=== PATIENT | female | born 1985 | race Caucasian/White ===

== ENCOUNTER 2016-10-08 20:40 | Emergency (ER) | payer SELFPAY ==
[2016-10-08 20:40] VITALS: BP 110/71
[~2016-10-08 20:40] MED LIST: DIAZ5TAB PO; NAPR500T3 PO
[2016-10-08] MEDS ORDERED: diphenhydrAMINE 50 MG/ML VIAL IVP ONE (21:30)
[2016-10-08] MEDS ORDERED: DEXAMETHASONE SOD PHOS 20 MG/5 ML VIAL. IV ONE (21:30)
[2016-10-08] MEDS ORDERED: PROCHLORPERAZINE 10 MG/2 ML VIAL. IV ONE (21:30)
[2016-10-08] MEDS ORDERED: KETOROLAC 15 MG/ML VIAL. IV ONE (21:30)
--- NOTE | 2016-10-08 21:34 | PHYS DOC ---
Past Medical History Past Medical History: Depression Past Surgical History: Other Additional Past Surgical Histo: D&C, knee, foot Alcohol Use: None Drug Use: None Adult General Chief Complaint Chief Complaint: HEADACHE HPI HPI Patient is a 31 year old female who presents with gradual onset headache over the past 5 days, bifrontal, achy/throbbing, constant, intermittent improvement without resolution with Excedrin. Also notes some right calf pain and swelling, constant, atraumatic for the past few days. Has nausea without emesis. Has tingling sensation intermittently in hands and feet when headache is worst; but none currently. She denies vision changes, photophobia, phonophobia, dizziness , f/c, abdominal pain, back pain, dysuria, diarrhea. No prior migraine diagnosis. Review of Systems Review of Systems Constitutional: Denies fever or chills [] Eyes: Denies change in visual acuity, redness, or eye pain [] HENT: Denies nasal congestion or sore throat [] Respiratory: Denies cough or shortness of breath [] Cardiovascular: No additional information not addressed in HPI [] GI: Denies abdominal pain, nausea, vomiting, bloody stools or diarrhea [] : Denies dysuria or hematuria [] Musculoskeletal: Denies back pain [] Integument: Denies rash or skin lesions [] Neurologic: Denies focal weakness or sensory changes [] Endocrine: Denies polyuria or polydipsia [] Current Medications Current Medications Current Medications Medications (Trade) Dose Ordered Sig/Guilherme Start Time Stop Time Status Last Admin Dose Admin Dexamethasone Sodium Phosphate (Decadron) 10 mg 1X ONCE 10/08/16 21:30 10/08/16 21:31 DC 10/08/16 21:45 10 MG Diphenhydramine HCl (Benadryl) 25 mg 1X ONCE 10/08/16 21:30 10/08/16 21:31 DC 10/08/16 21:46 25 MG Ketorolac Tromethamine (Toradol) 10 mg 1X ONCE 10/08/16 21:30 10/08/16 21:31 DC 10/08/16 21:46 10 MG Prochlorperazine Edisylate (Compazine) 10 mg 1X ONCE 10/08/16 21:30 10/08/16 21:31 DC 10/08/16 21:46 10 MG Allergies Allergies Allergies Coded Allergies Type Severity Reaction Last Updated Verified No Known Drug Allergies 11/27/13 No Physical Exam Physical Exam Constitutional: Well developed, well nourished, no acute distress, non-toxic appearance. [] HENT: Normocephalic, atraumatic, bilateral external ears normal, oropharynx moist, no oral exudates, nose normal. [] Eyes: PERRLA, EOMI, conjunctiva normal, no discharge. [] Neck: Normal range of motion, supple. [] Cardiovascular:Heart rate regular rhythm [] Lungs & Thorax: Bilateral breath sounds clear to auscultation [] Abdomen: Bowel sounds normal, soft, no tenderness. [] Skin: Warm, dry, no erythema, no rash. [] Back: No tenderness, no CVA tenderness. [] Extremities: Has mild tenderness to right medial calf with no visual or palpable abnormality, ROM intact, no edema, no palpable cord. [] Neurologic: Alert and oriented X 3, normal motor function, normal sensory function, no focal deficits noted, cranial nerves 2-12 intact. [] Psychologic: Affect normal, judgement normal, mood normal. [] Current Patient Data Vital Signs Vital Signs Date Time Temp Pulse Resp B/P (MAP) Pulse Ox O2 Delivery O2 Flow Rate FiO2 10/08/16 20:40 98.4 81 18 110/71 (84) 98 Room Air 98.4 Radiology/Procedures Radiology/Procedures Ultrasound right lower extremity venous Doppler IMPRESSION: No evidence of right lower extremity deep vein thrombosis. Electronically signed by: Anuel Recinos MD (10/08/2016 10:12 PM) Course & Med Decision Making Course & Med Decision Making Pertinent Labs and Imaging studies reviewed. (See chart for details) Workup is unremarkable. She is feeling better after medications here and would like to go home. Return precautions given. She understands and agrees with plan. Dragon Disclaimer Dragon Disclaimer This electronic medical record was generated, in whole or in part, using a voice recognition dictation system. Departure Departure Impression: Primary Impression: Headache Additional Impression: Right leg pain Disposition: 01 HOME, SELF-CARE Condition: STABLE Referrals: NO PCP (PCP) Patient Instructions: General Headache Without Cause, [id number] Additional Instructions: Follow-up with your primary care doctor. Return for any concerns. Problem Qualifiers Primary Impression: Headache Headache type: unspecified Headache chronicity pattern: episodic headache Intractability: not intractable Qualified Codes: R51 - Headache Silas NINO MD Oct 08, 2016 21:34
--- NOTE | 2016-10-08 22:15 | RAD ---
Right lower extremity venous Doppler dated 10/08/2016. No comparison available. CLINICAL INDICATION: Pain and swelling for one week. FINDINGS: Grayscale, color-flow and spectral waveform analysis was performed to include the deep venous system of the right lower extremity. Normal compressibility, phasicity and augmentation of flow throughout. No filling defects are seen. IMPRESSION: No evidence of right lower extremity deep vein thrombosis. Electronically signed by: Anuel Recinos MD (10/08/2016 10:12 PM)
== END 2016-10-08 23:06 | disposition home or self-care (01) ==
LOC: ER 20:40
DX: R51 Headache (principal); M79.661 Pain in right lower leg; R11.0 Nausea
CPT/HCPCS: 81025; 93971; 96374; 96375; 99284; J0780; J1100; J1200; J1885

== ENCOUNTER 2016-12-03 19:16 | Emergency (ER) | payer SELFPAY ==
[~2016-12-03] VITALS: Ht 157.5 cm; Wt 65.8 kg
[2016-12-03 20:32] LABS: BASO # 0.1 x10^3/uL (0.0-0.2); BASO % 1 % (0-3); EOS % 4 % (0-3); HEMATOCRIT 41.7 % (36.0-47.0); HEMOGLOBIN 14.3 g/dL (12.0-15.5); LYMPH % 29 % (24-48); MEAN CORPUSCULAR HEMOGLOBIN 30 pg (25-35); MEAN CORPUSCULAR HGB CONC 34 g/dL (31-37); MEAN CORPUSCULAR VOLUME 88 fL (79-100); MONO % 7 % (0-9); NEUT % 59 % (31-73); PLATELET COUNT 228 x10^3/uL (140-400); RED BLOOD COUNT 4.74 x10^6/uL (3.50-5.40); RED CELL DISTRIBUTION WIDTH 12.8 % (11.5-14.5); WHITE BLOOD COUNT 6.9 x10^3/uL (4.0-11.0)
[2016-12-03 20:43] LABS: CALCIUM 9.3 mg/dL (8.5-10.1); CREATININE 0.6 mg/dL (0.6-1.0); GFR 118.2; POTASSIUM 3.3 mmol/L (3.5-5.1)
[2016-12-03 20:50] LABS: ALBUMIN 3.9 g/dL (3.4-5.0); TOTAL BILIRUBIN 0.1 mg/dL (0.2-1.0); TOTAL PROTEIN 7.8 g/dL (6.4-8.2)
[2016-12-03 20:53] LABS: BILIRUBIN,URINE NEGATIVE (NEG); GLUCOSE,URINE NEGATIVE (NEG); NITRITE,URINE NEGATIVE (NEG); PROTEIN,URINE NEGATIVE (NEG-TRACE); UROBILINOGEN,URINE 0.2 mg/dL (0.2 mg/dL)
[2016-12-03 21:02] LABS: BACTERIA,URINE FEW /HPF (0-FEW); RBC,URINE OCC /HPF (0-2); SQUAMOUS EPITHELIAL CELL,UR MOD /LPF; WBC,URINE OCC /HPF (0-4)
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
[2016-12-03 22:00] VITALS: BP 120/60
--- NOTE | 2016-12-04 07:17 | EKG ---
[facility] [address] [place] [address] Test Date: 2016-12-03 Test Time: 19:27:44 Pat Name: BECKIE KRAMER Department: Room: Gender: F Traffic Chief: : 1985 Requested By: DONOVAN MEYER Order Number: [id number] Reading MD: Minna Badillo Measurements Intervals [place] Rate: 95 P: 33 WA: 126 QRS: 43 QRSD: 100 T: 12 QT: 346 QTc: 438 Interpretive Statements SINUS RHYTHM INCOMPLETE RIGHT BUNDLE BRANCH BLOCK OTHERWISE NORMAL ECG Electronically Signed On 12-05-2016 19:40:00 CDT by Minna Badillo
== END 2016-12-03 22:00 | disposition home or self-care (01) ==
LOC: ER 19:16
DX: T75.4XXA Electrocution, initial encounter (principal); W86.8XXA Exposure to other electric current, initial encounter
CPT/HCPCS: 36415; 80053; 81001; 81025; 82550; 85025; 93005; 99285-25

== ENCOUNTER → 2017-02-04 | Outpatient (CLI) | payer BC ==
[~2017-02-04] MED LIST changes: -NAPR500T3 PO; +NAPR500T4 PO
--- NOTE | 2017-02-04 12:07 | RAD ---
APPROVED REPORT Patient Location : OUT-PATIENT Indications VENOUS INSUFFICIENCY Findings JOSE FRANCISCO right great saphenous vein measures 3 mm and the left great saphenous vein measures 5 mm. The rig ht lesser saphenous vein measures 5 mm and the left lesser saphenous vein measures 4 mm. There is no evidence of reflux in the bilateral greater and lesser saphenous veins. Critical Notification Critical Value: No <Conclusion> No evidence of reflux in the bilateral greater and lesser saphenous veins.
== END | disposition home or self-care (01) ==
LOC: US 08:34
PROVIDERS: ATTEND Internal Medicine Cardiovascular Disease
DX: I87.2 Venous insufficiency (chronic) (peripheral) (principal)
CPT/HCPCS: 93970

== ENCOUNTER 2018-05-13 08:23 | Inpatient (IN) | payer SELFPAY ==
[~2018-05-13] VITALS: Ht 154.9 cm; Wt 72.7 kg
[~2018-05-13 08:23] MED LIST changes: +NAPR-514 PO; -NAPR500T4 PO
[2018-05-13] MEDS ORDERED: ACETAMINOPHEN 500 MG TABLET PO ONE ×2 (10:30→13:45)
[2018-05-13] MEDS ORDERED: DEXAMETHASONE SOD PHOS 20 MG/5 ML VIAL. IV ONE (10:30)
[2018-05-13] MEDS ORDERED: IOHEXOL 300 MG/ML 100ML VIAL. IV ONE (10:45)
[2018-05-13] MEDS ORDERED: CONTRAST GIVEN. MC PRN (10:45)
--- NOTE | 2018-05-13 11:41 | PHYS DOC ---
Past Medical History Past Medical History: No Pertinent History, Depression Additional Past Medical Histor: ptsd Past Surgical History: Tubal ligation, Other Additional Past Surgical Histo: D&C, knee, foot Alcohol Use: None Drug Use: None Adult General Chief Complaint Chief Complaint: FLU SYMPTOM HPI HPI Patient is a 32 year old female presents for evaluation of sore throat and fever since yesterday. She denies other symptoms. Review of Systems Review of Systems Constitutional: +FEVER [] Eyes: Denies change in visual acuity, redness, or eye pain [] HENT: Denies nasal congestion , +SORE THROAT[] Respiratory: Denies cough or shortness of breath [] Cardiovascular: No additional information not addressed in HPI [] GI: Denies abdominal pain, nausea, vomiting, bloody stools or diarrhea [] : Denies dysuria or hematuria [] Musculoskeletal: Denies back pain or joint pain [] Integument: Denies rash or skin lesions [] Neurologic: Denies headache, focal weakness or sensory changes [] Endocrine: Denies polyuria or polydipsia [] All other systems were reviewed and found to be within normal limits, except as documented in this note. Current Medications Current Medications Current Medications Medications (Trade) Dose Ordered Sig/Guilherme Start Time Stop Time Status Last Admin Dose Admin Acetaminophen (Tylenol) 1,000 mg 1X ONCE 05/13/18 13:45 05/13/18 13:48 DC Clindamycin Phosphate 50 ml @ 100 mls/hr 1X ONCE 05/13/18 13:45 05/13/18 14:14 DC 05/13/18 13:54 100 MLS/HR Dexamethasone Sodium Phosphate (Decadron) 10 mg 1X ONCE 05/13/18 10:30 05/13/18 10:31 DC 05/13/18 13:17 10 MG Ibuprofen (Motrin) 800 mg 1X ONCE 05/13/18 14:00 05/13/18 14:02 DC 05/13/18 14:18 800 MG Info (CONTRAST GIVEN -- Rx MONITORING) 1 each PRN DAILY PRN 05/13/18 10:45 05/15/18 10:44 Iohexol (Omnipaque 300 Mg/ml) 70 ml 1X ONCE 05/13/18 10:45 05/13/18 10:46 DC 05/13/18 10:45 70 ML Lidocaine HCl (Xylocaine-Mpf 2% Vial) 2 ml STK-MED ONCE 05/13/18 15:38 05/13/18 15:40 DC Morphine Sulfate (Morphine Sulfate) 2 mg PRN Q2HR PRN 05/13/18 16:30 05/14/18 16:29 Ondansetron HCl (Zofran) 4 mg PRN Q8HRS PRN 05/13/18 16:30 05/14/18 16:29 Potassium Chloride (KCl Oral Soln) 40 meq 1X ONCE 05/13/18 14:00 05/13/18 14:02 DC 05/13/18 14:20 40 MEQ Potassium Chloride (Klor-Con) 40 meq 1X ONCE 05/13/18 16:30 05/13/18 16:31 UNV Sodium Chloride 1,000 ml @ 1,000 mls/hr 1X ONCE 05/13/18 13:45 05/13/18 14:44 DC 05/13/18 14:39 1,000 MLS/HR Allergies Allergies Allergies Coded Allergies Type Severity Reaction Last Updated Verified No Known Drug Allergies 11/27/13 No Physical Exam Physical Exam Constitutional: Well developed, well nourished, no acute distress, ILL APPEARING. [] HENT: Normocephalic, atraumatic, , oropharynx moist, EDEMATOUS, ERYTHEMATOUS POSTERIOR ORAL PHARYNX, EDEMA TO TONSILS. [] Eyes: PERRLA, EOMI, conjunctiva normal, no discharge. [] Neck: Normal range of motion, no tenderness, supple, no stridor, + ANTERIOR BILAT CERV LYMPHADENOPATHY. [] Cardiovascular:Heart rate regular rhythm, no murmur [] Lungs & Thorax: Bilateral breath sounds clear to auscultation [] Skin: Warm, dry, no erythema, no rash. [] Neurologic: Alert and oriented X 3, normal motor function, normal sensory function, no focal deficits noted. [] Psychologic: Affect normal, judgement normal, mood normal. [] Current Patient Data Vital Signs Vital Signs Date Time Temp Pulse Resp B/P (MAP) Pulse Ox O2 Delivery O2 Flow Rate FiO2 05/13/18 16:25 98.0 98.0 05/13/18 12:20 20 05/13/18 10:30 97 134/72 (92) 98 Room Air Lab Values Laboratory Tests Test 1/26/19 12:55 White Blood Count 21.9 x10^3/uL (4.0-11.0) H Red Blood Count 4.75 x10^6/uL (3.50-5.40) Hemoglobin 13.3 g/dL (12.0-15.5) Hematocrit 39.8 % (36.0-47.0) Mean Corpuscular Volume 84 fL (79-100) Mean Corpuscular Hemoglobin 28 pg (25-35) Mean Corpuscular Hemoglobin Concent 33 g/dL (31-37) Red Cell Distribution Width 12.5 % (11.5-14.5) Platelet Count 197 x10^3/uL (140-400) Neutrophils (%) (Auto) 86 % (31-73) H Lymphocytes (%) (Auto) 5 % (24-48) L Monocytes (%) (Auto) 9 % (0-9) Eosinophils (%) (Auto) 0 % (0-3) Basophils (%) (Auto) 0 % (0-3) Neutrophils # (Auto) 18.9 x10^3uL (1.8-7.7) H Lymphocytes # (Auto) 1.1 x10^3/uL (1.0-4.8) Monocytes # (Auto) 1.9 x10^3/uL (0.0-1.1) H Eosinophils # (Auto) 0.0 x10^3/uL (0.0-0.7) Basophils # (Auto) 0.0 x10^3/uL (0.0-0.2) Segmented Neutrophils % 84 % (35-66) H Band Neutrophils % 2 % (0-9) Lymphocytes % 11 % (24-48) L Monocytes % 3 % (0-10) Toxic Granulation Slight Platelet Estimate Adequate (ADEQUATE) Sodium Level 134 mmol/L (136-145) L Potassium Level 2.8 mmol/L (3.5-5.1) *L Chloride Level 97 mmol/L (98-107) L Carbon Dioxide Level 24 mmol/L (21-32) Anion Gap 13 (6-14) Blood Urea Nitrogen 6 mg/dL (7-20) L Creatinine 0.7 mg/dL (0.6-1.0) Estimated GFR (Cockcroft-Gault) 98.3 BUN/Creatinine Ratio 9 (6-20) Glucose Level 102 mg/dL (70-99) H Lactic Acid Level 0.6 mmol/L (0.4-2.0) Calcium Level 9.2 mg/dL (8.5-10.1) Total Bilirubin 0.4 mg/dL (0.2-1.0) Aspartate Amino Transferase (AST) 16 U/L (15-37) Alanine Aminotransferase (ALT) 13 U/L (14-59) L Alkaline Phosphatase 113 U/L (46-116) Total Protein 8.5 g/dL (6.4-8.2) H Albumin 3.5 g/dL (3.4-5.0) Albumin/Globulin Ratio 0.7 (1.0-1.7) L Heterophil Agglutinins Negative (NEGATIVE) Laboratory Tests 05/13/18 12:55 Laboratory Tests 05/13/18 12:55 EKG EKG [] Radiology/Procedures Radiology/Procedures []REASON: CONCERN FOR CHORE TENDER PROCEDURE: CT SOFT TISSUE NECK W/CONTRAST CT SOFT TISSUE NECK W/CONTRAST dated 05/13/2018 3:40 PM Indication: Sore throat, painSORE THROAT X2DAYS
OMNI 300 70ML, NO PRIORS. Comparison: No comparison is available. Technique: Contiguous axial imaging of the neck performed following the intravenous administration of 70 cc Omnipaque 300. One or more of the following individualized dose reduction techniques were utilized for this examination: 1. Automated exposure control 2. Adjustment of the mA and/or kV according to patient size 3. Use of iterative reconstruction technique Findings: Lingual and palatine tonsils are enlarged and there is some edema in the deep parapharyngeal fat. No well-circumscribed fluid collection to suggest abscess. No soft tissue gas. There is also mild prominence of the adenoids. The central airway is patent. Mildly enlarged bilateral submandibular and jugulodigastric lymph nodes. The largest jugulodigastric lymph node is located on the right, measuring about 3.2 cm long axis. Smaller lymph nodes on the left. The neck vasculature is grossly patent. Thyroid gland unremarkable. No additional soft tissue abnormality. Limited imaged portions the brain parenchyma unremarkable. Visualized paranasal sinuses and mastoid air cells are clear. No apparent bony abnormality. Limited images of the lung apices are clear. IMPRESSION: 1. Parapharyngeal soft tissue thickening and enhancement, consistent with history of acute pharyngitis. There is no evidence of abscess or soft tissue gas. 2. Bilateral cervical chain lymphadenopathy, right greater than left. This is nonspecific but likely reactive. Follow-up imaging to ensure resolution. Electronically signed by: Anuel Recinos MD (05/13/2018 4:02 PM) [facility] [place] DICTATED and SIGNED BY: ANUEL RECINOS MD DATE: 05/13/18 1554 Course & Med Decision Making Course & Med Decision Making Pertinent Labs and Imaging studies reviewed. (See chart for details) []Patient meets sepsis criteria as she has been given IV fluids and IV antibiotics, CT neck indicates acute pharyngitis with no abscess, patient is admitted to Dr. Maravilla. Dragon Disclaimer Radhames Disclaimer This electronic medical record was generated, in whole or in part, using a voice recognition dictation system. Departure Departure Impression: Primary Impression: Pharyngitis Additional Impressions: Sepsis Hypokalemia Disposition: ADMITTED INPATIENT Admitting Physician: Dianne Maravilla Condition: STABLE Referrals: NO PCP (PCP) Problem Qualifiers PEGGY ACOSTA EMERGENCY DEPARTMENT MANAGER May 13, 2018 11:41
[2018-05-13] MEDS ORDERED: IV NORMAL SALINE 1000ML BAG 1,000 ML IV ONE ×2 (11:45→13:45)
[2018-05-13 13:16] LABS: BASO % 0 % (0-3); EOS % 0 % (0-3); HEMATOCRIT 39.8 % (36.0-47.0); HEMOGLOBIN 13.3 g/dL (12.0-15.5); LYMPH # 1.1 x10^3/uL (1.0-4.8); LYMPH % 5 % (24-48); MEAN CORPUSCULAR HEMOGLOBIN 28 pg (25-35); MEAN CORPUSCULAR HGB CONC 33 g/dL (31-37); MEAN CORPUSCULAR VOLUME 84 fL (79-100); MONO # 1.9 x10^3/uL (0.0-1.1); MONO % 9 % (0-9); NEUT # 18.9 x10^3uL (1.8-7.7); NEUT % 86 % (31-73); PLATELET COUNT 197 x10^3/uL (140-400); RED BLOOD COUNT 4.75 x10^6/uL (3.50-5.40); RED CELL DISTRIBUTION WIDTH 12.5 % (11.5-14.5); WHITE BLOOD COUNT 21.9 x10^3/uL (4.0-11.0)
[2018-05-13 13:33] LABS: ALBUMIN 3.5 g/dL (3.4-5.0); ALBUMIN/GLOBULIN RATIO 0.7 (1.0-1.7); CALCIUM 9.2 mg/dL (8.5-10.1); CREATININE 0.7 mg/dL (0.6-1.0); GFR 98.3; TOTAL BILIRUBIN 0.4 mg/dL (0.2-1.0); TOTAL PROTEIN 8.5 g/dL (6.4-8.2)
[2018-05-13 13:40] LABS: MONONUCLEOSIS PATIENT NEGATIVE (NEGATIVE)
[2018-05-13 13:41] LABS: POTASSIUM 2.8 mmol/L (3.5-5.1)
[2018-05-13] MEDS ORDERED: CLINDAMYCIN 600MG PREMIX 50 ML IV ONE (13:45)
[2018-05-13] MEDS ORDERED: IBUPROFEN 400 MG TABLET. PO ONE (14:00)
[2018-05-13] MEDS ORDERED: POTASSIUM CHLORIDE 20 MEQ/15 ML ORAL LIQUID. PO ONE (14:00)
[2018-05-13 15:07] LABS: % BANDS 2 % (0-9); % LYMPHS 11 % (24-48); % MONOS 3 % (0-10); % SEGS 84 % (35-66)
[2018-05-13 15:10] LABS: PLT ESTIMATE ADEQUATE (ADEQUATE); TOXIC GRANULATION SLIGHT
[2018-05-13] MEDS ORDERED: LIDOCAINE 2% PF 2ML VIAL. ONE (15:38)
--- NOTE | 2018-05-13 16:06 | RAD ---
CT SOFT TISSUE NECK W/CONTRAST dated 05/13/2018 3:40 PM Indication: Sore throat, painSORE THROAT X2DAYS
OMNI 300 70ML, NO PRIORS. Comparison: No comparison is available. Technique: Contiguous axial imaging of the neck performed following the intravenous administration of 70 cc Omnipaque 300. One or more of the following individualized dose reduction techniques were utilized for this examination: 1. Automated exposure control 2. Adjustment of the mA and/or kV according to patient size 3. Use of iterative reconstruction technique Findings: Lingual and palatine tonsils are enlarged and there is some edema in the deep parapharyngeal fat. No well-circumscribed fluid collection to suggest abscess. No soft tissue gas. There is also mild prominence of the adenoids. The central airway is patent. Mildly enlarged bilateral submandibular and jugulodigastric lymph nodes. The largest jugulodigastric lymph node is located on the right, measuring about 3.2 cm long axis. Smaller lymph nodes on the left. The neck vasculature is grossly patent. Thyroid gland unremarkable. No additional soft tissue abnormality. Limited imaged portions the brain parenchyma unremarkable. Visualized paranasal sinuses and mastoid air cells are clear. No apparent bony abnormality. Limited images of the lung apices are clear. IMPRESSION: 1. Parapharyngeal soft tissue thickening and enhancement, consistent with history of acute pharyngitis. There is no evidence of abscess or soft tissue gas. 2. Bilateral cervical chain lymphadenopathy, right greater than left. This is nonspecific but likely reactive. Follow-up imaging to ensure resolution. Electronically signed by: Anuel Recinos MD (05/13/2018 4:02 PM) [facility] [place]
[2018-05-13] MEDS ORDERED: guaiFENesin DM 200MG/20MG 10 ML SYRUP PO PRN (16:30)
[2018-05-13] MEDS ORDERED: MORPHINE SULFATE 4 MG/ML VIAL. IV PRN (16:30)
[2018-05-13] MEDS ORDERED: ONDANSETRON PF 4 MG/2 ML VIAL. IV PRN ×2 (16:30)
[2018-05-13] MEDS ORDERED: IBUPROFEN 400 MG TABLET. PO PRN (16:30)
[2018-05-13] MEDS ORDERED: ACETAMINOPHEN 500 MG TABLET PO PRN (16:30)
[2018-05-13] MEDS ORDERED: NICOTINE 21MG PATCH. TD PRN (16:30)
[2018-05-13] MEDS ORDERED: POTASSIUM CHLORIDE 20 MEQ TABLET.ER. PO ONE ×2 (16:45→17:00)
--- NOTE | 2018-05-13 16:52 | PDOC1 ---
History and Physical Date of Admission Date of Admission DATE: 05/13/18 TIME: 16:45 Identification/Chief Complaint Chief Complaint Sore throat Source Source: Caregiver, Chart review, Patient History of Present Illness History of Present Illness 32-year-old female with no significant past medical history sore throat for 2 days. Does not work in daycare or health care facilities. Denies recent sick contact or working with sick kids. Significant soft tissue on clinical exam and CT soft tissue neck. But tonsils are not enlarged and there is no abscess appreciated. She is minimally able to open her mouth for me to examine the posterior pharyngeal wall but there are palpable lymph nodes and is tender to touch on cervical neck chain exam. WBC elevated at 21 with predominance of neutrophils. Febrile in the ER and at home. Critical hypokalemia 2.8 from poor by mouth intake because of odynodysphagia. Sodium mildly low 134. No allergies to penicillin & got clindamycin at ER. group B strep pending Also, complains of myalgias. We'll test for flu Admitted for IV antibiotics. I do GI soft and advance diet as tolerated. Got Decadron- I agree I will continue 4 mgs IV every 6. Check for flu. Seen at ER Past Medical History Cardiovascular: No pertinent hx Pulmonary: No pertinent hx GI: No pertinent hx Heme/Onc: No pertinent hx Hepatobiliary: No pertinent hx Psych: No pertinent hx Rheumatologic: No pertinent hx Infectious disease: No pertinent hx ENT: No pertinent hx Renal/: No pertinent hx Endocrine: No pertinent hx Dermatology: No pertinent hx Past Surgical History Past Surgical History: No pertinent history Family History Family History: No Significant Social History Smoke: No ALCOHOL: none Drugs: None Current Problem List Problem List Problems Medical Problems: (1) Hypokalemia Status: Acute (2) Pharyngitis Status: Acute Current Medications Current Medications Current Medications Dexamethasone Sodium Phosphate (Decadron) 10 mg 1X ONCE IV Last administered on 05/13/18at 13:17; Start 05/13/18 at 10:30; Stop 05/13/18 at 10:31; Status DC Acetaminophen (Tylenol) 1,000 mg 1X ONCE PO Last administered on 05/13/18at 12: 25; Start 05/13/18 at 10:30; Stop 05/13/18 at 10:31; Status DC Iohexol (Omnipaque 300 Mg/ml) 70 ml 1X ONCE IV Last administered on 05/13/18at 10:45; Start 05/13/18 at 10:45; Stop 05/13/18 at 10:46; Status DC Info (CONTRAST GIVEN -- Rx MONITORING) 1 each PRN DAILY PRN MC SEE COMMENTS; Start 05/13/18 at 10:45; Stop 05/15/18 at 10:44 Sodium Chloride 1,000 ml @ 1,000 mls/hr 1X ONCE IV Last administered on at 13:17; Start 05/13/18 at 11:45; Stop 05/13/18 at 12:44; Status DC Clindamycin Phosphate 50 ml @ 100 mls/hr 1X ONCE IV Last administered on 05/13at 13:54; Start 05/13/18 at 13:45; Stop 05/13/18 at 14:14; Status DC Sodium Chloride 1,000 ml @ 1,000 mls/hr 1X ONCE IV Last administered on at 14:39; Start 05/13/18 at 13:45; Stop 05/13/18 at 14:44; Status DC Acetaminophen (Tylenol) 1,000 mg 1X ONCE PO ; Start 05/13/18 at 13:45; Stop at 13:48; Status DC Ibuprofen (Motrin) 800 mg 1X ONCE PO Last administered on 05/13/18at 14:18; Start 05/13/18 at 14:00; Stop 05/13/18 at 14:02; Status DC Potassium Chloride (KCl Oral Soln) 40 meq 1X ONCE PO Last administered on 05/13at 14:20; Start 05/13/18 at 14:00; Stop 05/13/18 at 16:37; Status DC Lidocaine HCl (Xylocaine-Mpf 2% Vial) 2 ml STK-MED ONCE .ROUTE ; Start 05/13/18 at 15:38; Stop 05/13/18 at 15:40; Status DC Ondansetron HCl (Zofran) 4 mg PRN Q8HRS PRN IV NAUSEA/VOMITING; Start 05/13/18 at 16:30; Stop 05/13/18 at 16:30; Status DC Morphine Sulfate (Morphine Sulfate) 2 mg PRN Q2HR PRN IV PAIN; Start 05/13/18 at 16:30; Stop 05/14/18 at 16:29 Potassium Chloride (Klor-Con) 40 meq 1X ONCE PO ; Start 05/13/18 at 17:00; Stop 05/13/18 at 17:00; Status DC Ondansetron HCl (Zofran) 4 mg PRN Q6HRS PRN IV NAUSEA/VOMITING; Start 05/13/18 at 16:30 Pseudoephedrine HCl (Sudafed 12-Hour) 120 mg BID PO ; Start 05/13/18 at 21:00 Guaifenesin (Robitussin Dm) 10 ml PRN Q6HRS PRN PO COUGH; Start 05/13/18 at 16: 30 Ampicillin Sodium/ Sulbactam Sodium 1.5 gm/Sodium Chloride 50 ml @ 100 mls/hr Q6HRS IV ; Start 05/13/18 at 17:00 Potassium Chloride/Dextrose/ Sod Cl 1,000 ml @ 100 mls/hr Q10H IV ; Start 05/13 at 16:30 Fluticasone Propionate (Flonase) 2 spray DAILY NS ; Start 05/14/18 at 09:00 Diphenhydramine HCl (Benadryl) 25 mg PRN QHS PRN PO INSOMNIA; Start 05/13/18 at 16:30 Nicotine (Nicoderm Cq 21mg) 1 patch PRN DAILY PRN TD SMOKING CESSATION; Start 05/13/18 at 16:30 Acetaminophen (Tylenol) 500 mg PRN Q6HRS PRN PO MILD PAIN / TEMP; Start at 16:30 Acetaminophen/ Codeine Phosphate (Tylenol #3) 1 tab PRN Q6HRS PRN PO MODERATE - SEVERE PAIN; Start 05/13/18 at 16:30 Ibuprofen (Motrin) 400 mg PRN Q6HRS PRN PO INFLAMMATION; Start 05/13/18 at 16: 30 Potassium Chloride (Klor-Con) 40 meq 1X ONCE PO ; Start 05/13/18 at 16:45; Stop 05/13/18 at 16:45; Status DC Active Scripts Active Naproxen 500 Mg Tablet 1 Tab PO BID Valium (Diazepam) 5 Mg Tablet 5 Mg PO BID Allergies Allergies: Coded Allergies: No Known Drug Allergies (Unverified , 11/27/13) ROS Review of System As per history of present illness, the rest of ROS 14 point negative Physical Exam General: Alert, No acute distress HEENT: Atraumatic, PERRLA, EOMI, Other (hyperemic. Posterior pharyngeal wall, no tonsils or abscesses appreciatedCervical neck chain nodes tender to touch) Lungs: Clear to auscultation, Normal air movement Heart: S1S2, RRR, no thrills, no rubs, no gallops, no murmurs Cardiovascular: S1, S2 Abdomen: Normal bowel sounds, Soft, No tenderness, No hepatosplenomegaly, No masses Rectal Exam: not examined PELVIC: Nml ext genitalia Extremities: No clubbing, No cyanosis, No edema, Normal pulses, No tenderness/ swelling Skin: No rashes, No breakdown, No significant lesion Neuro: Normal gait, Normal speech, Strength at 5/5 X4 ext, Normal tone, Sensation intact, Cranial nerves 3-12 NL, Reflexes 2+ Psych/Mental Status: Mental status NL, Mood NL Vitals Vitals Vital Signs Date Time Temp Pulse Resp B/P (MAP) Pulse Ox O2 Delivery O2 Flow Rate FiO2 05/13/18 16:25 98.0 98.0 05/13/18 12:20 20 05/13/18 10:30 97 134/72 (92) 98 Room Air Labs Labs Laboratory Tests Test 05/13/18 12:55 White Blood Count 21.9 x10^3/uL (4.0-11.0) Red Blood Count 4.75 x10^6/uL (3.50-5.40) Hemoglobin 13.3 g/dL (12.0-15.5) Hematocrit 39.8 % (36.0-47.0) Mean Corpuscular Volume 84 fL (79-100) Mean Corpuscular Hemoglobin 28 pg (25-35) Mean Corpuscular Hemoglobin Concent 33 g/dL (31-37) Red Cell Distribution Width 12.5 % (11.5-14.5) Platelet Count 197 x10^3/uL (140-400) Neutrophils (%) (Auto) 86 % (31-73) Lymphocytes (%) (Auto) 5 % (24-48) Monocytes (%) (Auto) 9 % (0-9) Eosinophils (%) (Auto) 0 % (0-3) Basophils (%) (Auto) 0 % (0-3) Neutrophils # (Auto) 18.9 x10^3uL (1.8-7.7) Lymphocytes # (Auto) 1.1 x10^3/uL (1.0-4.8) Monocytes # (Auto) 1.9 x10^3/uL (0.0-1.1) Eosinophils # (Auto) 0.0 x10^3/uL (0.0-0.7) Basophils # (Auto) 0.0 x10^3/uL (0.0-0.2) Segmented Neutrophils % 84 % (35-66) Band Neutrophils % 2 % (0-9) Lymphocytes % 11 % (24-48) Monocytes % 3 % (0-10) Toxic Granulation Slight Platelet Estimate Adequate (ADEQUATE) Sodium Level 134 mmol/L (136-145) Potassium Level 2.8 mmol/L (3.5-5.1) Chloride Level 97 mmol/L (98-107) Carbon Dioxide Level 24 mmol/L (21-32) Anion Gap 13 (6-14) Blood Urea Nitrogen 6 mg/dL (7-20) Creatinine 0.7 mg/dL (0.6-1.0) Estimated GFR (Cockcroft-Gault) 98.3 BUN/Creatinine Ratio 9 (6-20) Glucose Level 102 mg/dL (70-99) Lactic Acid Level 0.6 mmol/L (0.4-2.0) Calcium Level 9.2 mg/dL (8.5-10.1) Total Bilirubin 0.4 mg/dL (0.2-1.0) Aspartate Amino Transf (AST/SGOT) 16 U/L (15-37) Alanine Aminotransferase (ALT/SGPT) 13 U/L (14-59) Alkaline Phosphatase 113 U/L (46-116) Total Protein 8.5 g/dL (6.4-8.2) Albumin 3.5 g/dL (3.4-5.0) Albumin/Globulin Ratio 0.7 (1.0-1.7) Heterophil Agglutinins Negative (NEGATIVE) Laboratory Tests Test 05/13/18 12:55 White Blood Count 21.9 x10^3/uL (4.0-11.0) Red Blood Count 4.75 x10^6/uL (3.50-5.40) Hemoglobin 13.3 g/dL (12.0-15.5) Hematocrit 39.8 % (36.0-47.0) Mean Corpuscular Volume 84 fL (79-100) Mean Corpuscular Hemoglobin 28 pg (25-35) Mean Corpuscular Hemoglobin Concent 33 g/dL (31-37) Red Cell Distribution Width 12.5 % (11.5-14.5) Platelet Count 197 x10^3/uL (140-400) Neutrophils (%) (Auto) 86 % (31-73) Lymphocytes (%) (Auto) 5 % (24-48) Monocytes (%) (Auto) 9 % (0-9) Eosinophils (%) (Auto) 0 % (0-3) Basophils (%) (Auto) 0 % (0-3) Neutrophils # (Auto) 18.9 x10^3uL (1.8-7.7) Lymphocytes # (Auto) 1.1 x10^3/uL (1.0-4.8) Monocytes # (Auto) 1.9 x10^3/uL (0.0-1.1) Eosinophils # (Auto) 0.0 x10^3/uL (0.0-0.7) Basophils # (Auto) 0.0 x10^3/uL (0.0-0.2) Segmented Neutrophils % 84 % (35-66) Band Neutrophils % 2 % (0-9) Lymphocytes % 11 % (24-48) Monocytes % 3 % (0-10) Toxic Granulation Slight Platelet Estimate Adequate (ADEQUATE) Sodium Level 134 mmol/L (136-145) Potassium Level 2.8 mmol/L (3.5-5.1) Chloride Level 97 mmol/L (98-107) Carbon Dioxide Level 24 mmol/L (21-32) Anion Gap 13 (6-14) Blood Urea Nitrogen 6 mg/dL (7-20) Creatinine 0.7 mg/dL (0.6-1.0) Estimated GFR (Cockcroft-Gault) 98.3 BUN/Creatinine Ratio 9 (6-20) Glucose Level 102 mg/dL (70-99) Lactic Acid Level 0.6 mmol/L (0.4-2.0) Calcium Level 9.2 mg/dL (8.5-10.1) Total Bilirubin 0.4 mg/dL (0.2-1.0) Aspartate Amino Transf (AST/SGOT) 16 U/L (15-37) Alanine Aminotransferase (ALT/SGPT) 13 U/L (14-59) Alkaline Phosphatase 113 U/L (46-116) Total Protein 8.5 g/dL (6.4-8.2) Albumin 3.5 g/dL (3.4-5.0) Albumin/Globulin Ratio 0.7 (1.0-1.7) Heterophil Agglutinins Negative (NEGATIVE) VTE Prophylaxis Ordered VTE Prophylaxis Devices: Yes VTE Pharmacological Prophylaxi: Yes Assessment/Plan Assessment/Plan Severe acute tonsillopharyngitis rule out group B strep throat- 2 days onset Myalgias Rule out influenza Overweight BMI 30 Sepsis with fevers and leukocytosis Critical hypokalemia Odynophagia secondary to #1 Mild hyponatremia 134 PLAN: Admit 2 MN, K IVF then re check K tmr GI soft then ADAT PCN best tx COuld be viral too IV decadron for now sec to signif swelling Other supportive meds, sudafed, H1 antag etc NO home meds to reconcile Seen at ER Droplet prec Check for flu- tamiflu if positive DILIP HAGEN MD May 13, 2018 16:52
[2018-05-13] MEDS: DEXAMETHASONE SOD PHOS 4 MG/ML VIAL IV SCH ×2 (18:18→23:58)
[2018-05-13] MEDS: AMPICILLIN/SULBACTAM 1.5 GM in IV NORMAL SALINE 50ML 50 ML IV SCH ×2 (18:18→23:57)
[2018-05-13] MEDS: POTASSIUM CL 30MEQ D5-0.45NACL 1,000 ML IV SCH (18:21)
[2018-05-13 19:47] VITALS: BP 95/59
[2018-05-13] MEDS: diphenhydrAMINE HCL 25 MG CAPSULE PO PRN (21:55)
[2018-05-13 23:44] VITALS: BP 96/60
[2018-05-13] MEDS: PSEUDOEPHEDRINE ER 120 MG TABLET.ER. PO SCH (23:58)
[2018-05-14] MEDS: POTASSIUM CL 30MEQ D5-0.45NACL 1,000 ML IV SCH ×2 (02:30→12:30)
[2018-05-14 04:00] VITALS: BP 99/57
[2018-05-14] MEDS: AMPICILLIN/SULBACTAM 1.5 GM in IV NORMAL SALINE 50ML 50 ML IV SCH ×3 (06:38→18:06)
[2018-05-14] MEDS: DEXAMETHASONE SOD PHOS 4 MG/ML VIAL IV SCH ×3 (06:39→18:06)
[2018-05-14 07:13] LABS: CALCIUM 9.3 mg/dL (8.5-10.1); CREATININE 0.5 mg/dL (0.6-1.0); GFR 144.9
[2018-05-14 07:18] LABS: POTASSIUM 3.8 mmol/L (3.5-5.1)
[2018-05-14] MEDS: ACETAMINOPHEN/CODEINE 300/30MG TABLET. PO PRN ×2 (07:20→17:06)
[2018-05-14 07:55] VITALS: BP 99/63
[2018-05-14] MEDS ORDERED: ARIP15TA3 PO (07:57)
[2018-05-14] MEDS ORDERED: PRAZ2CAP PO (07:58)
[2018-05-14] MEDS ORDERED: TRAZ-86 PO (07:58)
[2018-05-14] MEDS: PSEUDOEPHEDRINE ER 120 MG TABLET.ER. PO SCH ×2 (09:35→20:53)
[2018-05-14] MEDS: FLUTICASONE 50MCG/NASAL SPRAY 16GM BOTTLE. NS SCH (09:36)
--- NOTE | 2018-05-14 11:24 | PDOC ---
PROGRESS NOTES Chief Complaint Chief Complaint acute tonsillopharyngitis -negative strep throat Negative influenza Overweight BMI 30 Sepsis with fevers and leukocytosis Critical hypokalemia, resolved Odynophagia secondary to #1 - better Mild hyponatremia 134, corrected History of Present Illness History of Present Illness She feels way better Swelling is significantly subsided-she is ready for regular diet CBC pending-WBC 21 No fevers Plan: Upgrade to regular diet Awaiting repeat CBC May add ESR Will need Augmentin on discharge target tomorrow She wishes to renew her anxiety pill, hydroxyzine? Vitals Vitals Vital Signs Date Time Temp Pulse Resp B/P (MAP) Pulse Ox O2 Delivery O2 Flow Rate FiO2 05/14/18 08:20 17 Room Air 05/14/18 07:55 97.5 71 99/63 (75) 98 97.5 Physical Exam General: Alert, Oriented X3, Cooperative, No acute distress Heart: Regular rate, Normal S1, Normal S2 Lungs: Clear Abdomen: Normal bowel sounds, Soft, No tenderness, No hepatosplenomegaly, No masses Extremities: No clubbing, No cyanosis, No edema, Normal pulses, No tenderness/ swelling Skin: No rashes, No breakdown, No significant lesion Labs LABS Laboratory Tests Test 05/13/18 12:55 05/14/18 06:20 White Blood Count 21.9 x10^3/uL (4.0-11.0) Red Blood Count 4.75 x10^6/uL (3.50-5.40) Hemoglobin 13.3 g/dL (12.0-15.5) Hematocrit 39.8 % (36.0-47.0) Mean Corpuscular Volume 84 fL (79-100) Mean Corpuscular Hemoglobin 28 pg (25-35) Mean Corpuscular Hemoglobin Concent 33 g/dL (31-37) Red Cell Distribution Width 12.5 % (11.5-14.5) Platelet Count 197 x10^3/uL (140-400) Neutrophils (%) (Auto) 86 % (31-73) Lymphocytes (%) (Auto) 5 % (24-48) Monocytes (%) (Auto) 9 % (0-9) Eosinophils (%) (Auto) 0 % (0-3) Basophils (%) (Auto) 0 % (0-3) Neutrophils # (Auto) 18.9 x10^3uL (1.8-7.7) Lymphocytes # (Auto) 1.1 x10^3/uL (1.0-4.8) Monocytes # (Auto) 1.9 x10^3/uL (0.0-1.1) Eosinophils # (Auto) 0.0 x10^3/uL (0.0-0.7) Basophils # (Auto) 0.0 x10^3/uL (0.0-0.2) Segmented Neutrophils % 84 % (35-66) Band Neutrophils % 2 % (0-9) Lymphocytes % 11 % (24-48) Monocytes % 3 % (0-10) Toxic Granulation Slight Platelet Estimate Adequate (ADEQUATE) Sodium Level 134 mmol/L (136-145) 142 mmol/L (136-145) Potassium Level 2.8 mmol/L (3.5-5.1) 3.8 mmol/L (3.5-5.1) Chloride Level 97 mmol/L (98-107) 107 mmol/L (98-107) Carbon Dioxide Level 24 mmol/L (21-32) 20 mmol/L (21-32) Anion Gap 13 (6-14) 15 (6-14) Blood Urea Nitrogen 6 mg/dL (7-20) 8 mg/dL (7-20) Creatinine 0.7 mg/dL (0.6-1.0) 0.5 mg/dL (0.6-1.0) Estimated GFR (Cockcroft-Gault) 98.3 144.9 BUN/Creatinine Ratio 9 (6-20) Glucose Level 102 mg/dL (70-99) 124 mg/dL (70-99) Lactic Acid Level 0.6 mmol/L (0.4-2.0) Calcium Level 9.2 mg/dL (8.5-10.1) 9.3 mg/dL (8.5-10.1) Total Bilirubin 0.4 mg/dL (0.2-1.0) Aspartate Amino Transf (AST/SGOT) 16 U/L (15-37) Alanine Aminotransferase (ALT/SGPT) 13 U/L (14-59) Alkaline Phosphatase 113 U/L (46-116) Total Protein 8.5 g/dL (6.4-8.2) Albumin 3.5 g/dL (3.4-5.0) Albumin/Globulin Ratio 0.7 (1.0-1.7) Heterophil Agglutinins Negative (NEGATIVE) Review of Systems Review of Systems A 14 point ROS was completed with the following noted as positive: Other systems reviewed and negative. \CONSTITUTIONAL: No fever or chills EYES: No recent changes SKIN: No rash or itching CARDIOVASCULAR: No chest pain, syncope, palpitations, or edema RESPIRATORY: No SOB or cough GASTROINTESTINAL: No nausea, vomiting or abdominal pain NEUROLOGICAL: No headaches or weakness ENDOCRINE: No cold or heat intolerance GENITOURINARY: No urgency or frequency of urination MUSCULOSKELETAL: No back pain or joint pain LYMPHATICS: No enlarged lymph nodes PSYCHIATRIC: No anxiety or depression Assessment and Plan Assessmemt and Plan Problems Medical Problems: (1) Hypokalemia Status: Acute (2) Pharyngitis Status: Acute Comment Review of Relevant I have reviewed the following items neal (where applicable) has been applied. Labs Laboratory Tests Test 05/13/18 10:15 05/13/18 12:55 05/14/18 06:20 Group A Streptococcus Rapid Negative (NEGATIVE) White Blood Count 21.9 x10^3/uL (4.0-11.0) Red Blood Count 4.75 x10^6/uL (3.50-5.40) Hemoglobin 13.3 g/dL (12.0-15.5) Hematocrit 39.8 % (36.0-47.0) Mean Corpuscular Volume 84 fL (79-100) Mean Corpuscular Hemoglobin 28 pg (25-35) Mean Corpuscular Hemoglobin Concent 33 g/dL (31-37) Red Cell Distribution Width 12.5 % (11.5-14.5) Platelet Count 197 x10^3/uL (140-400) Neutrophils (%) (Auto) 86 % (31-73) Lymphocytes (%) (Auto) 5 % (24-48) Monocytes (%) (Auto) 9 % (0-9) Eosinophils (%) (Auto) 0 % (0-3) Basophils (%) (Auto) 0 % (0-3) Neutrophils # (Auto) 18.9 x10^3uL (1.8-7.7) Lymphocytes # (Auto) 1.1 x10^3/uL (1.0-4.8) Monocytes # (Auto) 1.9 x10^3/uL (0.0-1.1) Eosinophils # (Auto) 0.0 x10^3/uL (0.0-0.7) Basophils # (Auto) 0.0 x10^3/uL (0.0-0.2) Segmented Neutrophils % 84 % (35-66) Band Neutrophils % 2 % (0-9) Lymphocytes % 11 % (24-48) Monocytes % 3 % (0-10) Toxic Granulation Slight Platelet Estimate Adequate (ADEQUATE) Sodium Level 134 mmol/L (136-145) 142 mmol/L (136-145) Potassium Level 2.8 mmol/L (3.5-5.1) 3.8 mmol/L (3.5-5.1) Chloride Level 97 mmol/L (98-107) 107 mmol/L (98-107) Carbon Dioxide Level 24 mmol/L (21-32) 20 mmol/L (21-32) Anion Gap 13 (6-14) 15 (6-14) Blood Urea Nitrogen 6 mg/dL (7-20) 8 mg/dL (7-20) Creatinine 0.7 mg/dL (0.6-1.0) 0.5 mg/dL (0.6-1.0) Estimated GFR (Cockcroft-Gault) 98.3 144.9 BUN/Creatinine Ratio 9 (6-20) Glucose Level 102 mg/dL (70-99) 124 mg/dL (70-99) Lactic Acid Level 0.6 mmol/L (0.4-2.0) Calcium Level 9.2 mg/dL (8.5-10.1) 9.3 mg/dL (8.5-10.1) Total Bilirubin 0.4 mg/dL (0.2-1.0) Aspartate Amino Transf (AST/SGOT) 16 U/L (15-37) Alanine Aminotransferase (ALT/SGPT) 13 U/L (14-59) Alkaline Phosphatase 113 U/L (46-116) Total Protein 8.5 g/dL (6.4-8.2) Albumin 3.5 g/dL (3.4-5.0) Albumin/Globulin Ratio 0.7 (1.0-1.7) Heterophil Agglutinins Negative (NEGATIVE) Laboratory Tests Test 05/13/18 12:55 1/27/19 06:20 White Blood Count 21.9 x10^3/uL (4.0-11.0) Red Blood Count 4.75 x10^6/uL (3.50-5.40) Hemoglobin 13.3 g/dL (12.0-15.5) Hematocrit 39.8 % (36.0-47.0) Mean Corpuscular Volume 84 fL (79-100) Mean Corpuscular Hemoglobin 28 pg (25-35) Mean Corpuscular Hemoglobin Concent 33 g/dL (31-37) Red Cell Distribution Width 12.5 % (11.5-14.5) Platelet Count 197 x10^3/uL (140-400) Neutrophils (%) (Auto) 86 % (31-73) Lymphocytes (%) (Auto) 5 % (24-48) Monocytes (%) (Auto) 9 % (0-9) Eosinophils (%) (Auto) 0 % (0-3) Basophils (%) (Auto) 0 % (0-3) Neutrophils # (Auto) 18.9 x10^3uL (1.8-7.7) Lymphocytes # (Auto) 1.1 x10^3/uL (1.0-4.8) Monocytes # (Auto) 1.9 x10^3/uL (0.0-1.1) Eosinophils # (Auto) 0.0 x10^3/uL (0.0-0.7) Basophils # (Auto) 0.0 x10^3/uL (0.0-0.2) Segmented Neutrophils % 84 % (35-66) Band Neutrophils % 2 % (0-9) Lymphocytes % 11 % (24-48) Monocytes % 3 % (0-10) Toxic Granulation Slight Platelet Estimate Adequate (ADEQUATE) Sodium Level 134 mmol/L (136-145) 142 mmol/L (136-145) Potassium Level 2.8 mmol/L (3.5-5.1) 3.8 mmol/L (3.5-5.1) Chloride Level 97 mmol/L (98-107) 107 mmol/L (98-107) Carbon Dioxide Level 24 mmol/L (21-32) 20 mmol/L (21-32) Anion Gap 13 (6-14) 15 (6-14) Blood Urea Nitrogen 6 mg/dL (7-20) 8 mg/dL (7-20) Creatinine 0.7 mg/dL (0.6-1.0) 0.5 mg/dL (0.6-1.0) Estimated GFR (Cockcroft-Gault) 98.3 144.9 BUN/Creatinine Ratio 9 (6-20) Glucose Level 102 mg/dL (70-99) 124 mg/dL (70-99) Lactic Acid Level 0.6 mmol/L (0.4-2.0) Calcium Level 9.2 mg/dL (8.5-10.1) 9.3 mg/dL (8.5-10.1) Total Bilirubin 0.4 mg/dL (0.2-1.0) Aspartate Amino Transf (AST/SGOT) 16 U/L (15-37) Alanine Aminotransferase (ALT/SGPT) 13 U/L (14-59) Alkaline Phosphatase 113 U/L (46-116) Total Protein 8.5 g/dL (6.4-8.2) Albumin 3.5 g/dL (3.4-5.0) Albumin/Globulin Ratio 0.7 (1.0-1.7) Heterophil Agglutinins Negative (NEGATIVE) Medications Current Medications Dexamethasone Sodium Phosphate (Decadron) 10 mg 1X ONCE IV Last administered on 05/13/18at 13:17; Start 05/13/18 at 10:30; Stop 05/13/18 at 10:31; Status DC Acetaminophen (Tylenol) 1,000 mg 1X ONCE PO Last administered on 05/13/18at 12: 25; Start 05/13/18 at 10:30; Stop 05/13/18 at 10:31; Status DC Iohexol (Omnipaque 300 Mg/ml) 70 ml 1X ONCE IV Last administered on 05/13/18at 10:45; Start 05/13/18 at 10:45; Stop 05/13/18 at 10:46; Status DC Info (CONTRAST GIVEN -- Rx MONITORING) 1 each PRN DAILY PRN MC SEE COMMENTS; Start 05/13/18 at 10:45; Stop 05/15/18 at 10:44 Sodium Chloride 1,000 ml @ 1,000 mls/hr 1X ONCE IV Last administered on at 13:17; Start 05/13/18 at 11:45; Stop 05/13/18 at 12:44; Status DC Clindamycin Phosphate 50 ml @ 100 mls/hr 1X ONCE IV Last administered on 05/13at 13:54; Start 05/13/18 at 13:45; Stop 05/13/18 at 14:14; Status DC Sodium Chloride 1,000 ml @ 1,000 mls/hr 1X ONCE IV Last administered on at 14:39; Start 05/13/18 at 13:45; Stop 05/13/18 at 14:44; Status DC Acetaminophen (Tylenol) 1,000 mg 1X ONCE PO ; Start 05/13/18 at 13:45; Stop at 13:48; Status DC Ibuprofen (Motrin) 800 mg 1X ONCE PO Last administered on 05/13/18at 14:18; Start 05/13/18 at 14:00; Stop 05/13/18 at 14:02; Status DC Potassium Chloride (KCl Oral Soln) 40 meq 1X ONCE PO Last administered on 05/13at 14:20; Start 05/13/18 at 14:00; Stop 05/13/18 at 16:37; Status DC Lidocaine HCl (Xylocaine-Mpf 2% Vial) 2 ml STK-MED ONCE .ROUTE ; Start 05/13/18 at 15:38; Stop 05/13/18 at 15:40; Status DC Ondansetron HCl (Zofran) 4 mg PRN Q8HRS PRN IV NAUSEA/VOMITING; Start 05/13/18 at 16:30; Stop 05/13/18 at 16:30; Status DC Morphine Sulfate (Morphine Sulfate) 2 mg PRN Q2HR PRN IV PAIN; Start 05/13/18 at 16:30; Stop 05/14/18 at 16:29 Potassium Chloride (Klor-Con) 40 meq 1X ONCE PO ; Start 05/13/18 at 17:00; Stop 05/13/18 at 17:00; Status DC Ondansetron HCl (Zofran) 4 mg PRN Q6HRS PRN IV NAUSEA/VOMITING; Start 05/13/18 at 16:30 Pseudoephedrine HCl (Sudafed 12-Hour) 120 mg BID PO Last administered on at 09:35; Start 05/13/18 at 21:00 Guaifenesin (Robitussin Dm) 10 ml PRN Q6HRS PRN PO COUGH; Start 05/13/18 at 16: 30 Ampicillin Sodium/ Sulbactam Sodium 1.5 gm/Sodium Chloride 50 ml @ 100 mls/hr Q6HRS IV Last administered on 05/14/18at 06:38; Start 05/13/18 at 17:00 Potassium Chloride/Dextrose/ Sod Cl 1,000 ml @ 100 mls/hr Q10H IV Last administered on 05/14/18at 02:30; Start 05/13/18 at 16:30 Fluticasone Propionate (Flonase) 2 spray DAILY NS Last administered on at 09:36; Start 05/14/18 at 09:00 Diphenhydramine HCl (Benadryl) 25 mg PRN QHS PRN PO INSOMNIA Last administered on 05/13/18at 21:55; Start 05/13/18 at 16:30 Nicotine (Nicoderm Cq 21mg) 1 patch PRN DAILY PRN TD SMOKING CESSATION; Start 05/13/18 at 16:30 Acetaminophen (Tylenol) 500 mg PRN Q6HRS PRN PO MILD PAIN / TEMP; Start at 16:30 Acetaminophen/ Codeine Phosphate (Tylenol #3) 1 tab PRN Q6HRS PRN PO MODERATE - SEVERE PAIN Last administered on 05/14/18at 07:20; Start 05/13/18 at 16:30 Ibuprofen (Motrin) 400 mg PRN Q6HRS PRN PO INFLAMMATION; Start 05/13/18 at 16: 30 Potassium Chloride (Klor-Con) 40 meq 1X ONCE PO ; Start 05/13/18 at 16:45; Stop 05/13/18 at 16:45; Status DC Dexamethasone Sodium Phosphate (Decadron) 4 mg Q6HRS IV Last administered on at 06:39; Start 05/13/18 at 17:00 Lactobacillus Rhamnosus (Culturelle) 1 cap BID PO ; Start 05/14/18 at 11:00 Active Scripts Active Naproxen 500 Mg Tablet 1 Tab PO BID Reported Trazodone Hcl 100 Mg Tablet 1 Tab PO QHS Minipress (Prazosin Hcl) 2 Mg Capsule 2 Mg PO HS Abilify (Aripiprazole) 15 Mg Tablet 15 Mg PO DAILY Vitals/I & O Vital Sign - Last 24 Hours 05/13/18 05/13/18 05/13/18 05/13/18 12:18 12:20 13:12 14:07 Temp 100.8 100.8 Pulse 120 120 110 Resp 24 18 B/P (MAP) 142/68 (92) 126/67 (86) 118/64 (82) Pulse Ox 100 99 98 O2 Delivery Room Air Room Air Room Air 05/13/18 05/13/18 05/13/18 05/13/18 14:47 16:05 16:25 16:45 Temp 98.0 98.0 Pulse 96 100 92 Resp 20 B/P (MAP) 110/58 (75) 107/65 (79) 94/56 (69) Pulse Ox 97 98 98 O2 Delivery Room Air Room Air Room Air 05/13/18 05/13/18 05/13/18 05/14/18 19:45 19:47 23:44 04:00 Temp 97.4 97.4 97.3 97.4 97.4 97.3 Pulse 96 61 67 Resp 16 18 18 B/P (MAP) 95/59 (71) 96/60 (72) 99/57 (71) Pulse Ox 94 96 96 O2 Delivery Room Air Room Air Room Air Room Air 05/14/18 05/14/18 05/14/18 05/14/18 07:20 07:55 08:00 08:20 Temp 97.5 97.5 Pulse 71 Resp 17 16 17 B/P (MAP) 99/63 (75) Pulse Ox 98 O2 Delivery Room Air Room Air Room Air Room Air Intake and Output 05/13/18 05/13/18 05/14/18 15:01 23:01 07:01 Intake Total 1050 ml 240 ml 350 ml Balance 1050 ml 240 ml 350 ml DILIP HAGEN MD May 14, 2018 11:24
[2018-05-14 11:33] VITALS: BP 91/49
[2018-05-14] MEDS: hydrOXYzine 10 MG TABLET PO SCH (11:54)
[2018-05-14] MEDS: LACTOBACILLUS RHAMNOSUS GG 1 CAPSULE. PO SCH ×2 (11:54→20:53)
[2018-05-14 15:21] VITALS: BP 109/62
[2018-05-14] MEDS ORDERED: PHENOL ORAL SPRAY 177ML BOTTLE. PO PRN (17:45)
[2018-05-14] MEDS: BENZOCAINE/MENTHOL LOZENGE. PO PRN (18:05)
[2018-05-14 19:48] VITALS: BP 101/62
[2018-05-14] MEDS: diphenhydrAMINE HCL 25 MG CAPSULE PO PRN (20:53)
[2018-05-14 23:45] VITALS: BP 94/51
[2018-05-15] MEDS: ACETAMINOPHEN/CODEINE 300/30MG TABLET. PO PRN (00:15)
[2018-05-15] MEDS: DEXAMETHASONE SOD PHOS 4 MG/ML VIAL IV SCH ×2 (00:16→06:00)
[2018-05-15] MEDS: AMPICILLIN/SULBACTAM 1.5 GM in IV NORMAL SALINE 50ML 50 ML IV SCH ×2 (00:16→06:00)
[2018-05-15] MEDS: POTASSIUM CL 30MEQ D5-0.45NACL 1,000 ML IV SCH ×2 (00:17→08:30)
[2018-05-15 03:31] VITALS: BP 102/65
[2018-05-15 04:24] LABS: BASO % 0 % (0-3); EOS % 0 % (0-3); HEMATOCRIT 37.7 % (36.0-47.0); HEMOGLOBIN 12.2 g/dL (12.0-15.5); LYMPH # 0.9 x10^3/uL (1.0-4.8); LYMPH % 5 % (24-48); MEAN CORPUSCULAR HEMOGLOBIN 28 pg (25-35); MEAN CORPUSCULAR HGB CONC 32 g/dL (31-37); MEAN CORPUSCULAR VOLUME 85 fL (79-100); MONO # 0.6 x10^3/uL (0.0-1.1); MONO % 3 % (0-9); NEUT % 92 % (31-73); PLATELET COUNT 241 x10^3/uL (140-400); RED BLOOD COUNT 4.42 x10^6/uL (3.50-5.40); RED CELL DISTRIBUTION WIDTH 12.5 % (11.5-14.5); WHITE BLOOD COUNT 19.5 x10^3/uL (4.0-11.0)
[2018-05-15 07:00] VITALS: BP 117/72
[2018-05-15] MEDS: hydrOXYzine 10 MG TABLET PO SCH (09:06)
[2018-05-15] MEDS: PSEUDOEPHEDRINE ER 120 MG TABLET.ER. PO SCH (09:06)
[2018-05-15] MEDS: BENZOCAINE/MENTHOL LOZENGE. PO PRN (09:06)
[2018-05-15] MEDS: LACTOBACILLUS RHAMNOSUS GG 1 CAPSULE. PO SCH (09:06)
[2018-05-15] MEDS: FLUTICASONE 50MCG/NASAL SPRAY 16GM BOTTLE. NS SCH (09:06)
[2018-05-15 11:00] VITALS: BP 106/61
--- NOTE | 2018-05-15 11:38 | PDOC ---
PROGRESS NOTES Chief Complaint Chief Complaint acute tonsillopharyngitis History of Present Illness History of Present Illness Patient seen and examined this morning. Shes states that she her throat feels much better and is ready to go home. She reports tolerating a regular diet well. She works at [employer]. Counseled patient on importance of establishing PCP. Vitals Vitals Vital Signs Date Time Temp Pulse Resp B/P (MAP) Pulse Ox O2 Delivery O2 Flow Rate FiO2 05/15/18 11:00 97.7 75 16 106/61 (76) 98 Room Air 97.7 Physical Exam General: Alert, Oriented X3, Cooperative, No acute distress Heart: Regular rate, Normal S1, Normal S2 Lungs: Clear Abdomen: Normal bowel sounds, Soft, No tenderness, No hepatosplenomegaly, No masses Extremities: No clubbing, No cyanosis, No edema, Normal pulses, No tenderness/ swelling Skin: No rashes, No breakdown, No significant lesion Labs LABS Laboratory Tests Test 05/15/18 03:50 White Blood Count 19.5 x10^3/uL (4.0-11.0) Red Blood Count 4.42 x10^6/uL (3.50-5.40) Hemoglobin 12.2 g/dL (12.0-15.5) Hematocrit 37.7 % (36.0-47.0) Mean Corpuscular Volume 85 fL (79-100) Mean Corpuscular Hemoglobin 28 pg (25-35) Mean Corpuscular Hemoglobin Concent 32 g/dL (31-37) Red Cell Distribution Width 12.5 % (11.5-14.5) Platelet Count 241 x10^3/uL (140-400) Neutrophils (%) (Auto) 92 % (31-73) Lymphocytes (%) (Auto) 5 % (24-48) Monocytes (%) (Auto) 3 % (0-9) Eosinophils (%) (Auto) 0 % (0-3) Basophils (%) (Auto) 0 % (0-3) Neutrophils # (Auto) 18.0 x10^3uL (1.8-7.7) Lymphocytes # (Auto) 0.9 x10^3/uL (1.0-4.8) Monocytes # (Auto) 0.6 x10^3/uL (0.0-1.1) Eosinophils # (Auto) 0.0 x10^3/uL (0.0-0.7) Basophils # (Auto) 0.0 x10^3/uL (0.0-0.2) Erythrocyte Sedimentation Rate 21 (0-25) Review of Systems Review of Systems GI: denies nausea HEENT: reports some throat pain but much improved. Assessment and Plan Assessmemt and Plan Assessment: 1. acute pharyngitis 2. Obesity 3. critical hypokalemia Plan: 1. Possible d/c today 2. augmentin po bid 7 days 3. Medrol dose pack 4. PCP appointment 5. PT/OT 6. labs Comment Review of Relevant I have reviewed the following items neal (where applicable) has been applied. Labs Laboratory Tests Test 05/13/18 12:55 05/13/18 21:00 05/14/18 06:20 05/15/18 03:50 White Blood Count 21.9 x10^3/uL (4.0-11.0) 19.5 x10^3/uL (4.0-11.0) Red Blood Count 4.75 x10^6/uL (3.50-5.40) 4.42 x10^6/uL (3.50-5.40) Hemoglobin 13.3 g/dL (12.0-15.5) 12.2 g/dL (12.0-15.5) Hematocrit 39.8 % (36.0-47.0) 37.7 % (36.0-47.0) Mean Corpuscular Volume 84 fL (79-100) 85 fL (79-100) Mean Corpuscular Hemoglobin 28 pg (25-35) 28 pg (25-35) Mean Corpuscular Hemoglobin Concent 33 g/dL (31-37) 32 g/dL (31-37) Red Cell Distribution Width 12.5 % (11.5-14.5) 12.5 % (11.5-14.5) Platelet Count 197 x10^3/uL (140-400) 241 x10^3/uL (140-400) Neutrophils (%) (Auto) 86 % (31-73) 92 % (31-73) Lymphocytes (%) (Auto) 5 % (24-48) 5 % (24-48) Monocytes (%) (Auto) 9 % (0-9) 3 % (0-9) Eosinophils (%) (Auto) 0 % (0-3) 0 % (0-3) Basophils (%) (Auto) 0 % (0-3) 0 % (0-3) Neutrophils # (Auto) 18.9 x10^3uL (1.8-7.7) 18.0 x10^3uL (1.8-7.7) Lymphocytes # (Auto) 1.1 x10^3/uL (1.0-4.8) 0.9 x10^3/uL (1.0-4.8) Monocytes # (Auto) 1.9 x10^3/uL (0.0-1.1) 0.6 x10^3/uL (0.0-1.1) Eosinophils # (Auto) 0.0 x10^3/uL (0.0-0.7) 0.0 x10^3/uL (0.0-0.7) Basophils # (Auto) 0.0 x10^3/uL (0.0-0.2) 0.0 x10^3/uL (0.0-0.2) Segmented Neutrophils % 84 % (35-66) Band Neutrophils % 2 % (0-9) Lymphocytes % 11 % (24-48) Monocytes % 3 % (0-10) Toxic Granulation Slight Platelet Estimate Adequate (ADEQUATE) Sodium Level 134 mmol/L (136-145) 142 mmol/L (136-145) Potassium Level 2.8 mmol/L (3.5-5.1) 3.8 mmol/L (3.5-5.1) Chloride Level 97 mmol/L (98-107) 107 mmol/L (98-107) Carbon Dioxide Level 24 mmol/L (21-32) 20 mmol/L (21-32) Anion Gap 13 (6-14) 15 (6-14) Blood Urea Nitrogen 6 mg/dL (7-20) 8 mg/dL (7-20) Creatinine 0.7 mg/dL (0.6-1.0) 0.5 mg/dL (0.6-1.0) Estimated GFR (Cockcroft-Gault) 98.3 144.9 BUN/Creatinine Ratio 9 (6-20) Glucose Level 102 mg/dL (70-99) 124 mg/dL (70-99) Lactic Acid Level 0.6 mmol/L (0.4-2.0) Calcium Level 9.2 mg/dL (8.5-10.1) 9.3 mg/dL (8.5-10.1) Total Bilirubin 0.4 mg/dL (0.2-1.0) Aspartate Amino Transf (AST/SGOT) 16 U/L (15-37) Alanine Aminotransferase (ALT/SGPT) 13 U/L (14-59) Alkaline Phosphatase 113 U/L (46-116) Total Protein 8.5 g/dL (6.4-8.2) Albumin 3.5 g/dL (3.4-5.0) Albumin/Globulin Ratio 0.7 (1.0-1.7) Heterophil Agglutinins Negative (NEGATIVE) Clostridium difficile Toxin B Gene Negative (Negative) Erythrocyte Sedimentation Rate 21 (0-25) Laboratory Tests Test 05/15/18 03:50 White Blood Count 19.5 x10^3/uL (4.0-11.0) Red Blood Count 4.42 x10^6/uL (3.50-5.40) Hemoglobin 12.2 g/dL (12.0-15.5) Hematocrit 37.7 % (36.0-47.0) Mean Corpuscular Volume 85 fL (79-100) Mean Corpuscular Hemoglobin 28 pg (25-35) Mean Corpuscular Hemoglobin Concent 32 g/dL (31-37) Red Cell Distribution Width 12.5 % (11.5-14.5) Platelet Count 241 x10^3/uL (140-400) Neutrophils (%) (Auto) 92 % (31-73) Lymphocytes (%) (Auto) 5 % (24-48) Monocytes (%) (Auto) 3 % (0-9) Eosinophils (%) (Auto) 0 % (0-3) Basophils (%) (Auto) 0 % (0-3) Neutrophils # (Auto) 18.0 x10^3uL (1.8-7.7) Lymphocytes # (Auto) 0.9 x10^3/uL (1.0-4.8) Monocytes # (Auto) 0.6 x10^3/uL (0.0-1.1) Eosinophils # (Auto) 0.0 x10^3/uL (0.0-0.7) Basophils # (Auto) 0.0 x10^3/uL (0.0-0.2) Erythrocyte Sedimentation Rate 21 (0-25) Microbiology 05/13/18 Blood Culture - Preliminary, Resulted NO GROWTH AFTER 1 DAY Medications Current Medications Dexamethasone Sodium Phosphate (Decadron) 10 mg 1X ONCE IV Last administered on 05/13/18at 13:17; Start 05/13/18 at 10:30; Stop 05/13/18 at 10:31; Status DC Acetaminophen (Tylenol) 1,000 mg 1X ONCE PO Last administered on 05/13/18at 12: 25; Start 05/13/18 at 10:30; Stop 05/13/18 at 10:31; Status DC Iohexol (Omnipaque 300 Mg/ml) 70 ml 1X ONCE IV Last administered on 05/13/18at 10:45; Start 05/13/18 at 10:45; Stop 05/13/18 at 10:46; Status DC Info (CONTRAST GIVEN -- Rx MONITORING) 1 each PRN DAILY PRN MC SEE COMMENTS; Start 05/13/18 at 10:45; Stop 05/15/18 at 10:44; Status DC Sodium Chloride 1,000 ml @ 1,000 mls/hr 1X ONCE IV Last administered on at 13:17; Start 05/13/18 at 11:45; Stop 05/13/18 at 12:44; Status DC Clindamycin Phosphate 50 ml @ 100 mls/hr 1X ONCE IV Last administered on 05/13at 13:54; Start 05/13/18 at 13:45; Stop 05/13/18 at 14:14; Status DC Sodium Chloride 1,000 ml @ 1,000 mls/hr 1X ONCE IV Last administered on at 14:39; Start 05/13/18 at 13:45; Stop 05/13/18 at 14:44; Status DC Acetaminophen (Tylenol) 1,000 mg 1X ONCE PO ; Start 05/13/18 at 13:45; Stop at 13:48; Status DC Ibuprofen (Motrin) 800 mg 1X ONCE PO Last administered on 05/13/18at 14:18; Start 05/13/18 at 14:00; Stop 05/13/18 at 14:02; Status DC Potassium Chloride (KCl Oral Soln) 40 meq 1X ONCE PO Last administered on 05/13at 14:20; Start 05/13/18 at 14:00; Stop 05/13/18 at 16:37; Status DC Lidocaine HCl (Xylocaine-Mpf 2% Vial) 2 ml STK-MED ONCE .ROUTE ; Start 05/13/18 at 15:38; Stop 05/13/18 at 15:40; Status DC Ondansetron HCl (Zofran) 4 mg PRN Q8HRS PRN IV NAUSEA/VOMITING; Start 05/13/18 at 16:30; Stop 05/13/18 at 16:30; Status DC Morphine Sulfate (Morphine Sulfate) 2 mg PRN Q2HR PRN IV PAIN; Start 05/13/18 at 16:30; Stop 05/14/18 at 16:29; Status DC Potassium Chloride (Klor-Con) 40 meq 1X ONCE PO ; Start 05/13/18 at 17:00; Stop 05/13/18 at 17:00; Status DC Ondansetron HCl (Zofran) 4 mg PRN Q6HRS PRN IV NAUSEA/VOMITING; Start 05/13/18 at 16:30 Pseudoephedrine HCl (Sudafed 12-Hour) 120 mg BID PO Last administered on at 09:06; Start 05/13/18 at 21:00 Guaifenesin (Robitussin Dm) 10 ml PRN Q6HRS PRN PO COUGH; Start 05/13/18 at 16: 30 Ampicillin Sodium/ Sulbactam Sodium 1.5 gm/Sodium Chloride 50 ml @ 100 mls/hr Q6HRS IV Last administered on 05/15/18at 06:00; Start 05/13/18 at 17:00 Potassium Chloride/Dextrose/ Sod Cl 1,000 ml @ 100 mls/hr Q10H IV Last administered on 05/15/18at 00:17; Start 05/13/18 at 16:30 Fluticasone Propionate (Flonase) 2 spray DAILY NS Last administered on at 09:06; Start 05/14/18 at 09:00 Diphenhydramine HCl (Benadryl) 25 mg PRN QHS PRN PO INSOMNIA Last administered on 05/14/18at 20:53; Start 05/13/18 at 16:30 Nicotine (Nicoderm Cq 21mg) 1 patch PRN DAILY PRN TD SMOKING CESSATION; Start 05/13/18 at 16:30 Acetaminophen (Tylenol) 500 mg PRN Q6HRS PRN PO MILD PAIN / TEMP; Start at 16:30 Acetaminophen/ Codeine Phosphate (Tylenol #3) 1 tab PRN Q6HRS PRN PO MODERATE - SEVERE PAIN Last administered on 05/15/18at 00:15; Start 05/13/18 at 16:30 Ibuprofen (Motrin) 400 mg PRN Q6HRS PRN PO INFLAMMATION; Start 05/13/18 at 16: 30 Potassium Chloride (Klor-Con) 40 meq 1X ONCE PO ; Start 05/13/18 at 16:45; Stop 05/13/18 at 16:45; Status DC Dexamethasone Sodium Phosphate (Decadron) 4 mg Q6HRS IV Last administered on at 06:00; Start 05/13/18 at 17:00 Lactobacillus Rhamnosus (Culturelle) 1 cap BID PO Last administered on at 09:06; Start 05/14/18 at 11:00 Hydroxyzine HCl (Atarax) 10 mg DAILY PO Last administered on 05/15/18 09:06; Start 05/14/18 at 12:00 Throat Lozenges (Cepacol Sore Throat Lozenge) 1 renetta PRN Q2HRS PRN PO SORE THROAT Last administered on 05/15/18 09:06; Start 05/14/18 at 17:45 Throat Lozenges (Chloraseptic) 1 spray PRN Q2HR PRN PO SORE THROAT Last administered on 05/14/18at 19:14; Start 05/14/18 at 17:45 Active Scripts Active Naproxen 500 Mg Tablet 1 Tab PO BID Reported Trazodone Hcl 100 Mg Tablet 1 Tab PO QHS Minipress (Prazosin Hcl) 2 Mg Capsule 2 Mg PO HS Abilify (Aripiprazole) 15 Mg Tablet 15 Mg PO DAILY Vitals/I & O Vital Sign - Last 24 Hours 05/14/18 05/14/18 05/14/18 05/14/18 15:21 17:06 18:06 19:48 Temp 97.3 97.5 97.3 97.5 Pulse 76 74 Resp 18 17 17 20 B/P (MAP) 109/62 (78) 101/62 (75) Pulse Ox 98 98 O2 Delivery Room Air Room Air Room Air 05/14/18 05/14/18 05/15/18 05/15/18 20:00 23:45 00:15 01:15 Temp 97.3 97.3 Pulse 71 Resp 18 B/P (MAP) 94/51 (65) Pulse Ox 97 97 97 O2 Delivery Room Air Room Air Room Air Room Air 05/15/18 05/15/18 05/15/18 05/15/18 03:31 07:00 08:00 11:00 Temp 97.5 97.6 97.7 97.5 97.6 97.7 Pulse 71 77 75 Resp 20 16 16 B/P (MAP) 102/65 (77) 117/72 (87) 106/61 (76) Pulse Ox 98 98 98 O2 Delivery Room Air Room Air Room Air Room Air Intake and Output 05/14/18 05/14/18 05/15/18 15:01 23:01 07:01 Intake Total 500 ml 500 ml Balance 500 ml 500 ml HARRIET DRUMMOND III DO May 15, 2018 11:37
--- NOTE | 2018-05-15 13:31 | NUR ---
Discharge Note: BECKIE KRAMER Discharge instructions and discharge home medications reviewed with Patient and a copy given. All questions have been answered and understanding verbalized. The following instructions and handouts were given: Rx for Augmentin, Medrol Dose pack, follow up instructions Discontinued lines and drains: 20 gauge Left EJ and 20 gauge Right FA, tips intact. Patient tolerated well. Patient discharged to home with self care via family.
== END 2018-05-15 13:00 | disposition home or self-care (01) | DRG 872 ==
LOC: ER 08:23 → 6 SOUTH 17:00
PROVIDERS: ADMIT Internal Medicine; ATTEND Internal Medicine
DX: A41.9 Sepsis, unspecified organism (principal); E87.1 Hypo-osmolality and hyponatremia; F43.10 Post-traumatic stress disorder, unspecified; J02.9 Acute pharyngitis, unspecified; E87.6 Hypokalemia; R13.10 Dysphagia, unspecified; E66.9 Obesity, unspecified; Z98.51 Tubal ligation status; Z68.30 Body mass index [BMI] 30.0-30.9, adult
CPT/HCPCS: 36415; 70491; 80048; 80053; 83605; 85007; 85025; 85651; 86308; 87040; 87070; 87493; 87880; 96361; 96365; 96375; J0295; J1100; J2001; J3490; J7030; Q0163; Q9967; 99285-25; G0378

== ENCOUNTER 2021-08-18 21:10 | Emergency (ER) | payer OTHER ==
[~2021-08-18] VITALS: Ht 154.9 cm; Wt 75.0 kg
[~2021-08-18 21:10] MED LIST changes: +ARIP15TA3 PO; +PRAZ2CAP PO; +TRAZ-123 PO
[2021-08-18] MEDS ORDERED: ONDANSETRON ODT 4 MG TAB.RAPDIS. PO ONE (21:30)
[2021-08-18 21:53] LABS: INFLUENZA A PATIENT NEGATIVE (NEGATIVE); INFLUENZA B PATIENT NEGATIVE (NEGATIVE)
[2021-08-18] MEDS ORDERED: IV NORMAL SALINE 1000ML BAG 1,000 ML IV ONE (22:00)
[2021-08-18] MEDS ORDERED: FAMOTIDINE 20 MG/2 ML VIAL IVP ONE (22:00)
[2021-08-18 22:06] LABS: BASO % 1 % (0-3); EOS % 0 % (0-3); HEMATOCRIT 38.3 % (36.0-47.0); HEMOGLOBIN 13.1 g/dL (12.0-15.5); LYMPH # 0.7 x10^3/uL (1.0-4.8); LYMPH % 12 % (24-48); MEAN CORPUSCULAR HEMOGLOBIN 30 pg (25-35); MEAN CORPUSCULAR HGB CONC 34 g/dL (31-37); MEAN CORPUSCULAR VOLUME 86 fL (79-100); MONO # 0.8 x10^3/uL (0.0-1.1); MONO % 13 % (0-9); NEUT # 4.4 x10^3/uL (1.8-7.7); NEUT % 74 % (31-73); PLATELET COUNT 241 x10^3/uL (140-400); RED BLOOD COUNT 4.44 x10^6/uL (3.50-5.40); RED CELL DISTRIBUTION WIDTH 12.4 % (11.5-14.5); WHITE BLOOD COUNT 5.9 x10^3/uL (4.0-11.0)
[2021-08-18 22:16] LABS: CALCIUM 8.8 mg/dL (8.5-10.1); CREATININE 0.8 mg/dL (0.6-1.0); GFR 82.1; POTASSIUM 3.2 mmol/L (3.5-5.1)
[2021-08-18 22:22] LABS: ALBUMIN 3.5 g/dL (3.4-5.0); ALBUMIN/GLOBULIN RATIO 0.8 (1.0-1.7); TOTAL BILIRUBIN 0.2 mg/dL (0.2-1.0); TOTAL PROTEIN 7.7 g/dL (6.4-8.2)
[2021-08-18 22:41] LABS: BACTERIA,URINE FEW /HPF (0-FEW); RBC,URINE 0 /HPF (0-2)
[2021-08-18] MEDS ORDERED: HYOS0.1265 SL (23:12)
[2021-08-18] MEDS ORDERED: ONDA4TAB12 PO (23:12)
[2021-08-18] MEDS ORDERED: FAMO-63 PO (23:12)
--- NOTE | 2021-08-18 23:12 | PHYS DOC ---
Past Medical History Past Medical History: Anxiety, Depression, GERD, Migraines Additional Past Medical Histor: ptsd, insomnia Past Surgical History: Knee Replacement (1992), Tubal ligation, Other Additional Past Surgical Histo: D&C x 2 (2009, 2012) Smoking Status: Current Every Day Smoker (0.5-1ppd x 22 yrs) Alcohol Use: Occasionally (social consumption) Drug Use: None General Adult EDM: Chief Complaint: FLU SYMPTOM HPI: HPI: Patient is a 36-year old female with PMH: Migraines, GERD, Anxiety/PTSD, and Insomnia who presents with CC: nausea/vomiting past 24 hours. Patient reports mild,diffuse, "achy" abdominal pain began on 08/16/2021 after eating a baked potato lunch. Patient reports symptoms initially resolved 08/17/2021. Patient reports abdominal pain returned with increasing intensity (currently 7/10) on 08/18/2021 and was accompanied with vomiting, nausea, intermittent fevers, sore throat, b/l ear pain, fatigue, and muscle aches. Patient describes the abdominal pain as "twisting" and constant. Patient consumed an Excederin OTC at 1930 on 08/18/2021 with minimal relief. Patient reports consuming food and water make abdominal pain worse and states having only consumed "cook islander fries from the [employer] [on 08/17/2021] and some pasta [on 08/18/2021]" since abdominal pain onset. Patient has been unable to "keep down" fluids on 08/18/2021. Patient has PSH: D/C x2 (2009,2012) and R knee replacement (1992). Patient's daily medications include: Vilara 4.5mg QID, Omeprazole ?mg QID (GERD), Hydroxyzine 50mg QID (Anxiety), Trazadone 100mg PRN (PTSD), and "2 migraine medications". Patient smokes 0.5-1ppd x 22yrs. Patient consumes alcohol socially. Patient consumes >3 cups of coffee/day. Patient denies diarrhea, hematochezia, rash, dizziness, rapid weight loss, or night sweats. Review of Systems: Review of Systems: Constitutional: Reports intermittent fever/chills Eyes: Denies redness or eye pain HENT: Denies nasal congestion. Reports mild sore throat. Reports b/l ear ache Respiratory: Denies cough or shortness of breath Cardiovascular: Denies chest pain or palpitations GI: Reports diffuse mild abdominal pain, nausea, and vomiting; denies hematochezia : Denies dysuria or hematuria Musculoskeletal: Denies back pain; reports mild joint pain Integument: Denies rash or skin lesions Neurologic: Denies headache, focal weakness or sensory changes Complete systems were reviewed and found to be within normal limits, except as documented in this note. Heart Score: C/O Chest Pain: N/A Current Medications: Current Medications Medications (Trade) Dose Ordered Sig/Guilherme Start Time Stop Time Status Last Admin Dose Admin Famotidine (Pepcid Vial) 20 mg 1X ONCE 08/18/21 22:00 08/18/21 22:01 DC 08/18/21 22:03 20 MG Ondansetron HCl (Zofran Odt) 4 mg 1X ONCE 08/18/21 21:30 08/18/21 21:31 DC 08/18/21 21:49 4 MG Sodium Chloride 1,000 ml @ 1,000 mls/hr 1X ONCE 08/18/21 22:00 08/18/21 23:00 DC 08/18/21 22:00 1,000 MLS/HR Allergies: Allergies: Allergies Coded Allergies Type Severity Reaction Last Updated Verified No Known Drug Allergies 11/27/13 No Physical Exam: PE: Constitutional: Well developed, well nourished, no acute distress, non-toxic appearance HENT: Normocephalic, atraumatic, no cobblestoning, mild posterior pharynx erythema, mild tenderness w/ swallowing Eyes: PERRL, EOMI, conjunctiva normal, no discharge Neck: Normal range of motion, no tenderness, supple Lungs & Thorax: No respiratory distress, equal chest rise and fall Abdomen: Soft, mild tenderness to palpation LUQ, diffuse abdominal tenderness LLQ/RLQ Skin: Warm, dry, no erythema, no rash Back: No tenderness, no CVA tenderness Extremities: Mild b/l UE/LE tenderness, ROM intact, no edema Neurologic: Alert and oriented X 3, normal motor function, normal sensory function, no focal deficits noted Psychologic: Affect normal, judgment normal Current Patient Data: Labs: Laboratory Tests Test 08/18/21 21:30 08/18/21 21:56 08/18/21 22:25 08/18/21 22:28 Influenza Type A Antigen Negative (NEGATIVE) Influenza Type B Antigen Negative (NEGATIVE) SARS-CoV-2 Antigen (Rapid) Negative (NEGATIVE) White Blood Count 5.9 x10^3/uL (4.0-11.0) Red Blood Count 4.44 x10^6/uL (3.50-5.40) Hemoglobin 13.1 g/dL (12.0-15.5) Hematocrit 38.3 % (36.0-47.0) Mean Corpuscular Volume 86 fL (79-100) Mean Corpuscular Hemoglobin 30 pg (25-35) Mean Corpuscular Hemoglobin Concent 34 g/dL (31-37) Red Cell Distribution Width 12.4 % (11.5-14.5) Platelet Count 241 x10^3/uL (140-400) Neutrophils (%) (Auto) 74 % (31-73) H Lymphocytes (%) (Auto) 12 % (24-48) L Monocytes (%) (Auto) 13 % (0-9) H Eosinophils (%) (Auto) 0 % (0-3) Basophils (%) (Auto) 1 % (0-3) Neutrophils # (Auto) 4.4 x10^3/uL (1.8-7.7) Lymphocytes # (Auto) 0.7 x10^3/uL (1.0-4.8) L Monocytes # (Auto) 0.8 x10^3/uL (0.0-1.1) Eosinophils # (Auto) 0.0 x10^3/uL (0.0-0.7) Basophils # (Auto) 0.0 x10^3/uL (0.0-0.2) Sodium Level 134 mmol/L (136-145) L Potassium Level 3.2 mmol/L (3.5-5.1) L Chloride Level 101 mmol/L (98-107) Carbon Dioxide Level 23 mmol/L (21-32) Anion Gap 10 (6-14) Blood Urea Nitrogen 9 mg/dL (7-20) Creatinine 0.8 mg/dL (0.6-1.0) Estimated GFR (Cockcroft-Gault) 82.1 BUN/Creatinine Ratio 11 (6-20) Glucose Level 117 mg/dL (70-99) H Calcium Level 8.8 mg/dL (8.5-10.1) Magnesium Level 2.0 mg/dL (1.8-2.4) Total Bilirubin 0.2 mg/dL (0.2-1.0) Aspartate Amino Transferase (AST) 11 U/L (15-37) L Alanine Aminotransferase (ALT) 16 U/L (14-59) Alkaline Phosphatase 72 U/L (46-116) Total Protein 7.7 g/dL (6.4-8.2) Albumin 3.5 g/dL (3.4-5.0) Albumin/Globulin Ratio 0.8 (1.0-1.7) L Lipase 157 U/L (73-393) Urine Collection Type Unknown Urine Color (Auto) Light yellow Urine Turbidity Clear Urine pH (Auto) 5.5 (<5.0-8.0) Urine Specific Reading 1.017 (1.000-1.030) Urine Protein (Auto) Negative mg/dL (Negative) Urine Glucose (Auto)(UA) Negative mg/dL (Negative) Urine Ketones (Auto) Negative mg/dL (Negative) Urine Blood (Auto) Negative (Negative) Urine Nitrite Negative (Negative) Urine Bilirubin (Auto) Negative (Negative) Urine Urobilinogen (Auto) Normal mg/dL (Normal) Urine Leukocyte Esterase (Auto) Small (Negative) Urine RBC 0 /HPF (0-2) Urine WBC 5-10 /HPF (0-4) Urine Squamous Epithelial Cells Mod /LPF Urine Bacteria Few /HPF (0-FEW) Urine Mucus Mod /LPF POC Urine HCG, Qualitative Hcg negative (Negative) Laboratory Tests 08/18/21 21:56 Laboratory Tests 08/18/21 21:56 Vital Signs: Vital Signs Date Time Temp Pulse Resp B/P (MAP) Pulse Ox O2 Delivery O2 Flow Rate FiO2 08/18/21 21:46 102 20 115/69 (84) 97 Room Air 08/18/21 21:15 98.3 98.3 EKG: EKG: [] Radiology/Procedures: Radiology/Procedures: [] Course & Med Decision Making: Course & Med Decision Making Pertinent Lab studies reviewed. (See chart for details) Nontoxic female presents with HPI and physical exam concerning for viral syndrome. Patient primarily with nausea and vomiting. Symptomatic treatment provided. IV fluid hydration given. Patient with interval improvement of symptoms. Labs obtained and posted to chart. Hypokalemia addressed. Rapid influenza and COVID-negative. Patient stable for discharge with outpatient follow-up with PCP. Discussed findings and plan with patient, who acknowledges understanding and agreement. Radhames Disclaimer: Radhames Disclaimer: This electronic medical record was generated, in whole or in part, using a voice recognition dictation system. Departure Departure Impression: Primary Impression: Nausea & vomiting Qualified Codes: R11.2 - Nausea with vomiting, unspecified Additional Impression: Hypokalemia Disposition: HOME / SELF CARE / HOMELESS Condition: STABLE Referrals: NO PCP (PCP) Patient Instructions: Clear Liquid Diet, [id number], Hypokalemia, Nausea and Vomiting, [id number], Potassium Content of Foods Scripts Ondansetron (ONDANSETRON ODT) 4 Mg Tab.rapdis 1 TAB PO PRN Q6-8HRS PRN for NAUSEA, #16 TAB Prov: ZULLY WAGGONER DO 08/18/21 Famotidine (PEPCID) 20 Mg Tablet 20 MG PO BID, #10 TAB Prov: ZULLY WAGGONER DO 08/18/21 Hyoscyamine Sulfate (LEVSIN-SL) 0.125 Mg Tab.subl 0.125 MG SL Q4-6HRS PRN for PAIN, #20 TAB Prov: ZULLY WAGGONER DO 08/18/21 ZULLY WAGGONER DO August 18, 2021 23:12
[2021-08-18] MEDS ORDERED: HYOSCYAMINE 0.125 MG TAB.RAPDIS PO ONE (23:15)
[2021-08-18] MEDS ORDERED: POTASSIUM CHLORIDE 20 MEQ TABLET.ER. PO ONE (23:15)
[2021-08-18 23:16] VITALS: BP 99/61
== END 2021-08-18 23:30 | disposition home or self-care (01) ==
LOC: ER 21:10
DX: R11.2 Nausea with vomiting, unspecified (principal); E87.6 Hypokalemia; Z20.822 Contact with and (suspected) exposure to COVID-19; K21.9 Gastro-esophageal reflux disease without esophagitis; G43.909 Migraine, unspecified, not intractable, without status migrainosus; F17.200 Nicotine dependence, unspecified, uncomplicated; F43.10 Post-traumatic stress disorder, unspecified; Z98.51 Tubal ligation status
CPT/HCPCS: 36415; 80053; 81001; 81025; 83690; 83735; 85025; 87086; 87428; 96361; 96374; 99284; J3490; J7030